=== PATIENT | male | born 1975 | race Caucasian/White ===

== ENCOUNTER 2017-07-02 09:45 | Emergency (ER) | payer MEDICAID, OTHER ==
[~2017-07-02] VITALS: Ht 172.7 cm; Wt 97.9 kg
[~2017-07-02 09:45] MED LIST: CEPH-443 PO; METF500T4 PO
[2017-07-02 09:47] VITALS: Ht 172.7 cm; Wt 97.9 kg
[2017-07-02] MEDS ORDERED: DIPHTH/TET/ACEL PERTUSS (ADULT) 0.5 ML VIAL IM* ONE (12:00)
--- NOTE | 2017-07-02 12:41 | RADRPT ---
PROCEDURE: CT Brain without contrast. CLINICAL INDICATION: Headaches. Neurologic deficit TECHNIQUE: A CT of the brain was performed on multidetector high-resolution CT scanner utilizing a xial sections from the skull base through the vertex without contrast. One or more of the following dose reduction techniques were used: Automated exposure control, Adjustment of the mA and/or kV acc ording to patient size, and/or use of iterative reconstruction technique. DICOM images are available . DOSE: CTDI = 45 mGy and the DLP = 720 mGy-cm. COMPARISON: None available FINDINGS: Mild frontal scalp swelling without acute skull fracture. No acute intracranial hemorrhage, significant mass effect or midline shift. The blandon-white different iation is grossly preserved. The ventricles are normal in size for age. No significant opacification of the visualized paranasal sinuses or mastoids. IMPRESSION: Mild frontal scalp swelling without acute skull fracture. No acute intracranial findings. RPTAT: AA .Ryan Hansen MD, MD Date Time Electronically viewed and signed by .Ryan Hansen MD, on 07/02/2017 12:41 .T/
[2017-07-02 13:00] VITALS: BP 120/70; PULSE 77; RESP 16; TEMP 97.7
--- NOTE | 2017-07-02 13:22 | ERD ---
ER Documentation Chief Complaint Chief Complaint WALKED INTO A FORK LIFT AND HIT HEAD, HEAD LAC, NO KO HPI 42-year-old male states that he walked into the blunt edge of a forklift at work today and hit his head causing him a laceration to the frontal aspect. Patient states that he felt dizzy for a few seconds but does not recall if there is any actual loss of consciousness. He did not experience any vomiting, denies any headaches, but does report localized head pain to laceration. He does not recall when his last tetanus shot was. Patient denies any numbness, paresthesias, visual changes. Denies neck pain. ROS All systems reviewed and are negative except as per history of present illness. Medications Home Meds Active Scripts Cephalexin* (Keflex*) 500 Mg Capsule, 500 MG PO QID for 7 Days, CAP Prov:CRISTOPHER BHATT S. 05/02/14 Metformin* (Glucophage*) 500 Mg Tab, 500 MG PO WITH MEALS, #60 TAB Prov:CRISTOPHER BHATT S. 05/02/14 Allergies Allergies: Coded Allergies: No Known Allergy (Unverified , 04/28/14) PMhx/Soc History of Surgery: Yes (Appendectomy) Anesthesia Reaction: No Hx Neurological Disorder: No Hx Respiratory Disorders: No Hx Cardiac Disorders: No Hx Psychiatric Problems: No Hx Miscellaneous Medical Probl: No Hx Alcohol Use: Yes Hx Substance Use: No Hx Tobacco Use: No Smoking Status: Never smoker Physical Exam Vitals Vital Signs Date Time Temp Pulse Resp B/P Pulse Ox O2 Delivery O2 Flow Rate FiO2 07/02/17 09:47 97.7 78 16 121/70 99 Physical Exam General: Well-developed, well-nourished. The patient appears in no acute distress. HEENT: Head is normocephalic, scalp is atraumatic. Mid forehead has a 1.5 cm superficial, jugular laceration, does not pass to subcutaneous tissue, and there is no calvarium exposure, there is no evidence of any active bleeding, or foreign bodies. No scleral icterus. Pupils are equal, round, and reactive. Neck: Supple. Nontender. Lungs: Clear to auscultation. Normal air movement. Heart: Regular rate and rhythm. S1 and S2 are normal. No murmurs, gallops, or rubs. Abdomen: Soft, nontender, nondistended. Bowel sounds are normoactive. Extremities: No clubbing or cyanosis. Normal pulses. Moving extremities x 4. No weakness. Neurologic: Alert and oriented 3. No focal deficits. Gait normal. Skin: Normal turgor. No rash or lesions. Results 24 hrs Current Medications Medications (Trade) Dose Ordered Sig/Alejo Route PRN Reason Start Time Stop Time Status Last Admin Dose Admin Diphtheria/ Tetanus/Acell Pertussis (Adacel) 0.5 ml ONCE ONCE IM* 07/02/17 12:00 07/02/17 12:01 DC 07/02/17 12:00 DIAGNOSTIC IMAGING REPORT Patient: LYN CERDA : 1975 Age: 42 Sex: M MR #: [id number] DOS: 07/02/17 1145 Ordering MD: MIAN CONCEPCION PA-C Location: [facility] Room/Bed: PROCEDURE: CT Brain without contrast. CLINICAL INDICATION: Headaches. Neurologic deficit TECHNIQUE: A CT of the brain was performed on multidetector high-resolution CT scanner utilizing axial sections from the skull base through the vertex without contrast. One or more of the following dose reduction techniques were used: Automated exposure control, Adjustment of the mA and/or kV according to patient size, and/or use of iterative reconstruction technique. DICOM images are available. DOSE: CTDI = 45 mGy and the DLP = 720 mGy-cm. COMPARISON: None available FINDINGS: Mild frontal scalp swelling without acute skull fracture. No acute intracranial hemorrhage, significant mass effect or midline shift. The blandon-white differentiation is grossly preserved. The ventricles are normal in size for age. No significant opacification of the visualized paranasal sinuses or mastoids. IMPRESSION: Mild frontal scalp swelling without acute skull fracture. No acute intracranial findings. RPTAT: AA .Ryan Hansen MD, MD Date Time Electronically viewed and signed by .Ryan Hansen MD, on 07/02/2017 12:41 Procedures/MDM Laceration Repair by me via Dermabond: Patient was verbally consented Location: Tendon/Joint/Nerves: No injury Foreign body: None detected after copious irrigation and exploration Post Closure Length: 1.5 cm Patient's bleeding was easily controlled in the department and there is no indication of anemia. No evidence of compartment syndrome, neurologic injury, vascular injury, open joint, tendon laceration, or foreign body. Patient is appropriate for outpatient follow up. 48 hour wound check. Scar minimization instructions given. Decision makin-year-old male comes in with a laceration frontal aspect of his head from blunt trauma when he walked into a forklift. Patient's wound is superficial, and was repaired with Dermabond without any complications. CT scan does not show evidence of an intracranial hemorrhage or skull fracture, he is neurologically intact and is stable for outpatient management. Departure Diagnosis: Primary Impression: Laceration Additional Impression: Acute head injury without loss of consciousness Condition: Good Patient Instructions: HEAD INJURY, No Wake-Up (Adult), Laceration, All MIAN CONCEPCION PA-C Jul 02, 2017 13:22
== END 2017-07-02 13:00 | disposition home or self-care (01) ==
LOC: FTE 09:45
DX: S01.81XA Laceration without foreign body of other part of head, initial encounter (principal); S09.90XA Unspecified injury of head, initial encounter; W22.8XXA Striking against or struck by other objects, initial encounter; Y92.9 Unspecified place or not applicable; Z79.84 Long term (current) use of oral hypoglycemic drugs
CPT/HCPCS: 70450; 90471; 90715